=== PATIENT | female | born 1965 | race Caucasian/White ===

== ENCOUNTER → 2018-08-16 | Outpatient (CLI) | payer BC ==
[~2018-08-16] MED LIST: ATOR10TA65 PO; CETI10CA8 PO; DOXE25CA45 PO; ESTR0.5T16 PO; HYDR-4225 PO; HYDR200T77 PO; HYDR25CA83 PO; LEVO100T95 PO; MEDR10TA65 PO; PRED20TA6 PO
== END ==
LOC: RESP 21:04
PROVIDERS: ATTEND Physician Assistant
DX: G47.33 Obstructive sleep apnea (adult) (pediatric) (principal); G47.61 Periodic limb movement disorder